=== PATIENT | male | born 1985 | race Caucasian/White ===

== ENCOUNTER 2019-04-21 10:01 | Emergency (ER) | payer MEDICAID, OTHER ==
[~2019-04-21] VITALS: Ht 165.1 cm; Wt 60.0 kg
[~2019-04-21 10:01] MED LIST: AMOX500T2 PO; BACDS PO; HYDR1TAB PO; NAPR-700 PO
[2019-04-21 10:02] VITALS: BP 115/68
[2019-04-21] MEDS ORDERED: LIDOcaine 1% w/epiNEPHrine 1:200,000 30ml vial IM ONE (11:50)
--- NOTE | 2019-04-21 12:02 | NUR ---
barry tobin injected epi lido into coccyx to drain abscess
[2019-04-21] MEDS ORDERED: DOXY100C43 PO (12:05)
== END 2019-04-21 12:35 | disposition home or self-care (01) ==
LOC: ER 10:02
DX: L02.31 Cutaneous abscess of buttock (principal); F12.90 Cannabis use, unspecified, uncomplicated; Z88.1 Allergy status to other antibiotic agents; Z88.2 Allergy status to sulfonamides; Z79.899 Other long term (current) drug therapy; Z90.49 Acquired absence of other specified parts of digestive tract; Z98.890 Other specified postprocedural states
CPT/HCPCS: 10060; 99283

== ENCOUNTER 2022-09-01 19:13 | Emergency (ER) | payer MEDICAID, OTHER ==
[~2022-09-01] VITALS: Ht 167.6 cm; Wt 84.1 kg
[~2022-09-01 19:13] MED LIST changes: -BACDS PO; +SULF1TAB45 PO
[2022-09-01 19:37] VITALS: BP 134/80
[2022-09-01] MEDS ORDERED: HYDROcodone/acetaminophen 5mg/325mg tablet PO ONE (22:40)
[2022-09-01] MEDS ORDERED: HYDR-3965 PO (23:04)
== END 2022-09-01 23:40 | disposition home or self-care (01) ==
LOC: ER 19:14
DX: M25.552 Pain in left hip (principal); F17.200 Nicotine dependence, unspecified, uncomplicated; F12.10 Cannabis abuse, uncomplicated; Z79.899 Other long term (current) drug therapy; X50.1XXA Overexertion from prolonged static or awkward postures, initial encounter; Y93.89 Activity, other specified; Y92.89 Other specified places as the place of occurrence of the external cause; Y99.8 Other external cause status
CPT/HCPCS: 99284